=== PATIENT | female | born 1960 | race Hispanic/Latino ===

== ENCOUNTER → 2021-01-30 | Day surgery (SDC) | payer OTHER ==
[2021-01-26 11:40] LABS: BASOPHILS # (AUTO) 0.1 (0.0-0.1); BASOPHILS % 0.9 % (0.0-1.0); EOSINOPHILS # (AUTO) 0.1 (0.0-0.4); EOSINOPHILS % 1.9 % (0.0-6.0); HEMATOCRIT 42.2 % (34.2-44.1); HEMOGLOBIN 14.2 g/dL (12.0-16.0); LYMPHOCYTES # (AUTO) 2.7 (1.0-3.2); MEAN CORPUSCULAR HEMOGLOBIN 29.1 pg (28-32); MEAN CORPUSCULAR HGB CONC 33.6 g/dL (31-35); MEAN CORPUSCULAR VOLUME 86.5 fL (81-99); MONOCYTES # (AUTO) 0.4 (0.2-0.8); MONOCYTES % 6.5 % (4.4-11.3); NEUTROPHILS # (AUTO) 2.6 (2.1-6.9); NEUTROPHILS % 44.5 % (38.7-80.0); PLATELET COUNT 205 x10e3/uL (140-360); RED BLOOD COUNT 4.88 x10e6/uL (3.6-5.1)
[~2021-01-30] MED LIST: CRESTOR10 MG PO; ISOSORBIDE MONO20 MG PO; LIDOCAINE HCL 2% LOCAL INJ 5 ML SDV VIAL INJ ONE; METOPROLOL SUCC25 MG PO; MIDAZOLAM HCL 2 MG/2 ML VIAL ONE; OZEMPIC1 MG/0.75 SC; PLAVIX75 MG PO; PROPOFOL IV EMULSION 10 MG/ML 20 ML VIAL ONE; SYNJARDY 5-1,01 EACH PO; ZESTRIL10 MG PO
[2021-01-30 10:40] VITALS: BP 130/75
== END | disposition home or self-care (01) ==
LOC: OR 06:41
PROVIDERS: ATTEND Internal Medicine Gastroenterology
DX: Z12.11 Encounter for screening for malignant neoplasm of colon (principal); D12.2 Benign neoplasm of ascending colon; K64.8 Other hemorrhoids; G47.33 Obstructive sleep apnea (adult) (pediatric); E66.9 Obesity, unspecified; E11.9 Type 2 diabetes mellitus without complications; I25.10 Atherosclerotic heart disease of native coronary artery without angina pectoris; I10 Essential (primary) hypertension; E78.5 Hyperlipidemia, unspecified; H91.90 Unspecified hearing loss, unspecified ear; Z01.812 Encounter for preprocedural laboratory examination; Z20.822 Contact with and (suspected) exposure to COVID-19; Z79.02 Long term (current) use of antithrombotics/antiplatelets; Z95.5 Presence of coronary angioplasty implant and graft; Z95.1 Presence of aortocoronary bypass graft
CPT/HCPCS: 36415 ×2; 45385; 82948; 85025; J2001; J2250; J2704; U0002; 45378

== ENCOUNTER 2023-04-12 16:35 | Emergency (ER) | payer OTHER ==
[~2023-04-12] VITALS: Ht 154.9 cm; Wt 78.9 kg
[~2023-04-12 16:35] MED LIST changes: +CIPRO500 MG PO; +CLINDAMYCIN HC150 MG PO; +DOCUSATE SODIU100 MG PO; -LIDOCAINE HCL 2% LOCAL INJ 5 ML SDV VIAL INJ ONE; -MIDAZOLAM HCL 2 MG/2 ML VIAL ONE; -PROPOFOL IV EMULSION 10 MG/ML 20 ML VIAL ONE; +ULTRAM 50MG50 MG PO
[2023-04-12] MEDS ORDERED: ONDANSETRON HCL INJ 2MG/ML 2ML 2 MG/ML VIAL IV STA (18:12)
[2023-04-12] MEDS ORDERED: Morphine 4mg INJECTION 4 MG/ML INJ IV ONE (18:15)
[2023-04-12] MEDS ORDERED: SODIUM CHLORIDE 0.9% 1000ML 1,000 ML IV ONE (18:15)
[2023-04-12 18:23] LABS: BASOPHILS % 0.4 % (0.0-1.0); EOSINOPHILS # (AUTO) 0.1 (0.0-0.4); EOSINOPHILS % 0.9 % (0.0-6.0); HEMOGLOBIN 14.1 g/dL (12.0-16.0); LYMPHOCYTES # (AUTO) 2.7 (1.0-3.2); LYMPHOCYTES % 25.6 % (18.0-39.1); MEAN CORPUSCULAR HEMOGLOBIN 29.4 pg (28-32); MEAN CORPUSCULAR HGB CONC 34.4 g/dL (31-35); MEAN CORPUSCULAR VOLUME 85.4 fL (81-99); MONOCYTES # (AUTO) 0.6 (0.2-0.8); MONOCYTES % 5.7 % (4.4-11.3); NEUTROPHILS % 67.1 % (38.7-80.0); PLATELET COUNT 212 x10e3/uL (140-360); RED CELL DISTRIBUTION WIDTH 12.5 % (11.7-14.4)
[2023-04-12 18:36] LABS: ALBUMIN 3.9 g/dL (3.5-5.0); ALBUMIN/GLOBULIN RATIO 1.2 (0.8-2.0); ANION GAP 13.7 mmol/L (8-16); CALCIUM 9.2 mg/dL (8.4-10.2); CREATININE, SERUM 0.72 mg/dL (0.57-1.11); POTASSIUM 3.7 mmol/L (3.5-5.1)
[2023-04-12 18:47] LABS: CLARITY,URINE CLOUDY (CLEAR); COLOR,URINE YELLOW (YELLOW)
[2023-04-12 18:48] LABS: KETONES,URINE NEGATIVE (NEGATIVE); LEUKOCYTE ESTERASE ,URINE SMALL (NEGATIVE); NITRITE,URINE POSITIVE (NEGATIVE); PROTEIN,URINE DIPSTICK 1+ (NEGATIVE); URINE UROBILINOGEN 0.2 mg/dL (0.2 - 1)
[2023-04-12 18:51] LABS: BACTERIA,URINE MANY /HPF; EPITHELIAL CELLS,URINE RARE /LPF; WBC,URINE (MAN) >50 /HPF (0-5)
[2023-04-12] MEDS ORDERED: IOPAMIDOL 370 MG/ML 100 ML INFUS..BTL INJ ONE (19:06)
[2023-04-12] MEDS ORDERED: HYDRALAZINE HCL 20 MG/ML VIAL IV STA (19:51)
[2023-04-12] MEDS ORDERED: SODIUM CHLORIDE 0.9% 100 ML ONE (19:57)
[2023-04-12] MEDS ORDERED: CEFTRIAXONE 1 GM VIAL IV ONE (20:00)
[2023-04-12] MEDS ORDERED: KETOROLAC TROMETHAMINE 30 MG/ML VIAL IV STA (20:01)
[2023-04-12] MEDS ORDERED: CEPHALEXIN500 MG PO (23:01)
[2023-04-12 23:28] VITALS: O2SAT 98
== END 2023-04-12 23:45 | disposition home or self-care (01) ==
LOC: ER 16:49
DX: R10.31 Right lower quadrant pain (principal); N39.0 Urinary tract infection, site not specified; E11.65 Type 2 diabetes mellitus with hyperglycemia; I10 Essential (primary) hypertension; E78.5 Hyperlipidemia, unspecified; I25.10 Atherosclerotic heart disease of native coronary artery without angina pectoris; R94.31 Abnormal electrocardiogram [ECG] [EKG]; Z95.1 Presence of aortocoronary bypass graft
CPT/HCPCS: 36415; 74177; 80053; 81001; 83690; 85025; 87086; 87186; 93005; 99284; J0360; J0696; J1885; J2270; J2405; J7030; J7050; Q9967

== ENCOUNTER 2023-04-15 18:05 | Inpatient (IN) | payer OTHER ==
[~2023-04-15] VITALS: Ht 154.9 cm; Wt 81.2 kg
[~2023-04-15 18:05] MED LIST changes: +CEPHALEXIN500 MG PO
[2023-04-15] MEDS ORDERED: SODIUM CHLORIDE FLUSH 10 ML SYR INJ PRN (18:45)
[2023-04-15] MEDS ORDERED: DEXTROSE 50% SYRINGE 50 ML IV PRN (18:45)
[2023-04-15] MEDS ORDERED: ONDANSETRON HCL INJ 2MG/ML 2ML 2 MG/ML VIAL IV PRN (18:45)
[2023-04-15 18:56] LABS: BASOPHILS % 0.5 % (0.0-1.0); EOSINOPHILS # (AUTO) 0.2 (0.0-0.4); EOSINOPHILS % 3.3 % (0.0-6.0); HEMATOCRIT 42.5 % (34.2-44.1); HEMOGLOBIN 14.4 g/dL (12.0-16.0); LYMPHOCYTES # (AUTO) 2.6 (1.0-3.2); LYMPHOCYTES % 45.9 % (18.0-39.1); MEAN CORPUSCULAR HEMOGLOBIN 29.2 pg (28-32); MEAN CORPUSCULAR HGB CONC 33.9 g/dL (31-35); MEAN CORPUSCULAR VOLUME 86.2 fL (81-99); MONOCYTES # (AUTO) 0.4 (0.2-0.8); MONOCYTES % 6.3 % (4.4-11.3); NEUTROPHILS # (AUTO) 2.5 (2.1-6.9); NEUTROPHILS % 43.8 % (38.7-80.0); PLATELET COUNT 243 x10e3/uL (140-360); RED BLOOD COUNT 4.93 x10e6/uL (3.6-5.1); RED CELL DISTRIBUTION WIDTH 12.4 % (11.7-14.4)
[2023-04-15 19:16] LABS: ALBUMIN 3.9 g/dL (3.5-5.0); ALBUMIN/GLOBULIN RATIO 1.1 (0.8-2.0); ANION GAP 14.6 mmol/L (8-16); CALCIUM 10.2 mg/dL (8.4-10.2); CREATININE, SERUM 0.79 mg/dL (0.57-1.11); POTASSIUM 3.6 mmol/L (3.5-5.1)
[2023-04-15 19:46] LABS: CLARITY,URINE SL CLOUDY (CLEAR); COLOR,URINE YELLOW (YELLOW)
[2023-04-15 19:47] LABS: KETONES,URINE NEGATIVE (NEGATIVE); LEUKOCYTE ESTERASE ,URINE TRACE (NEGATIVE); NITRITE,URINE NEGATIVE (NEGATIVE); PROTEIN,URINE DIPSTICK 2+ (NEGATIVE); URINE UROBILINOGEN 0.2 mg/dL (0.2 - 1)
[2023-04-15 20:05] LABS: BACTERIA,URINE FEW /HPF; EPITHELIAL CELLS,URINE FEW /LPF; RENAL EPITHELIAL CELLS,URINE FEW
[2023-04-15 21:00] VITALS: BP 172/73; PULSE 79; RESP 20; TEMP 98.7; O2SAT 97
[2023-04-15 21:04] VITALS: BP 172/78; PULSE 79; RESP 20; TEMP 98.7; O2SAT 97
[2023-04-15] MEDS ORDERED: ATORVASTATIN CA40 MG PO (21:21)
[2023-04-15] MEDS ORDERED: METOPROLOL SUCC50 MG PO (21:21)
[2023-04-15] MEDS ORDERED: GABAPENTIN300 MG PO (21:21)
[2023-04-15] MEDS ORDERED: METFORMIN HCL500 M1 PO (21:21)
[2023-04-15] MEDS ORDERED: LISINOPRIL40 MG PO (21:21)
[2023-04-15] MEDS ORDERED: TRAMADOL HCL 50 MG TAB PO PRN (21:45)
[2023-04-15] MEDS ORDERED: CLONIDINE HCL 0.1 MG TAB PO PRN (21:45)
[2023-04-15] MEDS: ACETAMINOPHEN 325 MG TAB PO PRN (22:41)
[2023-04-15] MEDS: ATORVASTATIN 40 MG TAB PO SCH (22:42)
[2023-04-15] MEDS: INSULIN REGULAR, HUMAN 100 UNIT/1 ML SQ SCH (22:44)
[2023-04-16] VITALS (7 sets, daily range): BP systolic 137–163; BP diastolic 57–75; PULSE 58–76; RESP 18–20; TEMP 98.2–98.7; O2SAT 94–100
[2023-04-16 05:24] LABS: BASOPHILS % 0.7 % (0.0-1.0); EOSINOPHILS # (AUTO) 0.2 (0.0-0.4); EOSINOPHILS % 3.9 % (0.0-6.0); HEMATOCRIT 37.5 % (34.2-44.1); HEMOGLOBIN 12.5 g/dL (12.0-16.0); LYMPHOCYTES % 50.9 % (18.0-39.1); MEAN CORPUSCULAR HEMOGLOBIN 29.2 pg (28-32); MEAN CORPUSCULAR HGB CONC 33.3 g/dL (31-35); MEAN CORPUSCULAR VOLUME 87.6 fL (81-99); MONOCYTES # (AUTO) 0.5 (0.2-0.8); MONOCYTES % 7.6 % (4.4-11.3); NEUTROPHILS # (AUTO) 2.2 (2.1-6.9); NEUTROPHILS % 36.7 % (38.7-80.0); PLATELET COUNT 193 x10e3/uL (140-360); RED BLOOD COUNT 4.28 x10e6/uL (3.6-5.1); RED CELL DISTRIBUTION WIDTH 12.3 % (11.7-14.4)
[2023-04-16 05:46] LABS: ALBUMIN 3.2 g/dL (3.5-5.0); ALBUMIN/GLOBULIN RATIO 1.1 (0.8-2.0); ANION GAP 11.7 mmol/L (8-16); CALCIUM 8.9 mg/dL (8.4-10.2); CREATININE, SERUM 0.71 mg/dL (0.57-1.11); POTASSIUM 3.7 mmol/L (3.5-5.1)
[2023-04-16] MEDS: ISOSORBIDE MONONITRATE 20 MG TAB PO SCH ×3 (09:00→10:07)
[2023-04-16] MEDS: CLOPIDOGREL BISULFATE 75 MG TAB PO SCH (10:03)
[2023-04-16] MEDS: LISINOPRIL 10 MG TAB PO SCH (10:03)
[2023-04-16] MEDS: DOCUSATE SODIUM 100 MG CAP PO SCH ×2 (10:03→17:16)
[2023-04-16] MEDS: METFORMIN HCL 500 MG TAB CR PO SCH ×2 (10:04→17:16)
[2023-04-16] MEDS: METOPROLOL SUCCINATE 25 MG TAB XL PO SCH (10:05)
[2023-04-16] MEDS: INSULIN REGULAR, HUMAN 100 UNIT/1 ML SQ SCH ×4 (10:06→21:46)
[2023-04-16] MEDS: ENOXAPARIN SOD INJ 40 MG/0.4 ML SYR SC SCH (17:17)
[2023-04-16] MEDS ORDERED: ATORVASTATIN 40 MG TAB PO SCH (21:00)
[2023-04-16] MEDS: GABAPENTIN 300 MG CAP PO SCH (21:39)
[2023-04-16] MEDS: ATORVASTATIN 40 MG TAB PO SCH (21:41)
[2023-04-17] VITALS: BP 161/65; PULSE 65; RESP 20; TEMP 98.7
[2023-04-17] MEDS: INSULIN REGULAR, HUMAN 100 UNIT/1 ML SQ SCH ×4 (07:30→21:46)
[2023-04-17 08:00] VITALS: BP 161/65; PULSE 65; RESP 20; TEMP 98.7; O2SAT 98
[2023-04-17 08:43] VITALS: BP 142/69; PULSE 63; RESP 18; TEMP 98.4; O2SAT 97
[2023-04-17] MEDS ORDERED: ONDANSETRON HCL 4 MG ORAL DISINTEGRATING TAB PO PRN (09:00)
[2023-04-17] MEDS: CLOPIDOGREL BISULFATE 75 MG TAB PO SCH (09:55)
[2023-04-17] MEDS: DOCUSATE SODIUM 100 MG CAP PO SCH ×2 (09:55→17:46)
[2023-04-17] MEDS: LISINOPRIL 10 MG TAB PO SCH (09:56)
[2023-04-17] MEDS: METFORMIN HCL 500 MG TAB CR PO SCH ×2 (09:56→17:46)
[2023-04-17] MEDS: METOPROLOL SUCCINATE 25 MG TAB XL PO SCH (09:57)
[2023-04-17] MEDS: ISOSORBIDE MONONITRATE 20 MG TAB PO SCH (09:57)
[2023-04-17 12:19] VITALS: BP 141/63; PULSE 66; RESP 16; TEMP 98.1; O2SAT 97
[2023-04-17 16:04] VITALS: BP 130/52; PULSE 63; RESP 18; TEMP 98.4; O2SAT 99
[2023-04-17] MEDS: ENOXAPARIN SOD INJ 40 MG/0.4 ML SYR SC SCH (17:46)
[2023-04-17 20:00] VITALS: BP 130/52; PULSE 63; RESP 18; TEMP 98.4; O2SAT 99
[2023-04-17] MEDS: GABAPENTIN 300 MG CAP PO SCH (20:37)
[2023-04-17] MEDS: ATORVASTATIN 40 MG TAB PO SCH (20:37)
[2023-04-17] MEDS: ACETAMINOPHEN 325 MG TAB PO PRN (20:43)
[2023-04-18 04:00] VITALS: BP 163/69; PULSE 54; RESP 17; TEMP 98.2; O2SAT 100
[2023-04-18 06:30] LABS: BASOPHILS % 0.5 % (0.0-1.0); EOSINOPHILS # (AUTO) 0.2 (0.0-0.4); EOSINOPHILS % 3.7 % (0.0-6.0); HEMATOCRIT 39.7 % (34.2-44.1); HEMOGLOBIN 13.1 g/dL (12.0-16.0); LYMPHOCYTES # (AUTO) 3.6 (1.0-3.2); LYMPHOCYTES % 60.2 % (18.0-39.1); MONOCYTES # (AUTO) 0.4 (0.2-0.8); MONOCYTES % 7.2 % (4.4-11.3); NEUTROPHILS # (AUTO) 1.7 (2.1-6.9); NEUTROPHILS % 28.2 % (38.7-80.0); PLATELET COUNT 209 x10e3/uL (140-360); RED BLOOD COUNT 4.51 x10e6/uL (3.6-5.1); RED CELL DISTRIBUTION WIDTH 12.4 % (11.7-14.4)
[2023-04-18 06:53] LABS: ANION GAP 10.7 mmol/L (8-16); CREATININE, SERUM 0.62 mg/dL (0.57-1.11); POTASSIUM 3.7 mmol/L (3.5-5.1)
[2023-04-18] MEDS: INSULIN REGULAR, HUMAN 100 UNIT/1 ML SQ SCH ×2 (07:30→12:13)
[2023-04-18 08:02] VITALS: BP 169/69; PULSE 63; RESP 18; TEMP 97.7; O2SAT 98
[2023-04-18 09:00] VITALS: BP 169/69; PULSE 63; RESP 18; TEMP 97.7; O2SAT 98
[2023-04-18] MEDS: ISOSORBIDE MONONITRATE 20 MG TAB PO SCH (09:32)
[2023-04-18] MEDS: CLOPIDOGREL BISULFATE 75 MG TAB PO SCH (09:32)
[2023-04-18] MEDS: LISINOPRIL 10 MG TAB PO SCH (09:33)
[2023-04-18] MEDS: METFORMIN HCL 500 MG TAB CR PO SCH (09:40)
[2023-04-18] MEDS: DOCUSATE SODIUM 100 MG CAP PO SCH (09:40)
[2023-04-18] MEDS: METOPROLOL SUCCINATE 25 MG TAB XL PO SCH (09:40)
[2023-04-18] MEDS ORDERED: MACROBID 100 M100 MG PO ×2 (11:01→11:18)
[2023-04-18 11:38] VITALS: BP 152/61; PULSE 63; RESP 19; TEMP 98.7; O2SAT 92
== END 2023-04-18 13:48 | disposition home or self-care (01) | DRG 690 ==
LOC: ER 18:11 → ERHOLD 18:39 → MED/SURG2 20:12
PROVIDERS: ADMIT Internal Medicine; ATTEND Internal Medicine
DX: N39.0 Urinary tract infection, site not specified (principal); Z16.24 Resistance to multiple antibiotics; B96.89 Other specified bacterial agents as the cause of diseases classified elsewhere; E78.00 Pure hypercholesterolemia, unspecified; I25.10 Atherosclerotic heart disease of native coronary artery without angina pectoris; I10 Essential (primary) hypertension; E11.40 Type 2 diabetes mellitus with diabetic neuropathy, unspecified; Z95.1 Presence of aortocoronary bypass graft; Z79.02 Long term (current) use of antithrombotics/antiplatelets; Z79.85 Long-term (current) use of injectable non-insulin antidiabetic drugs; Z20.822 Contact with and (suspected) exposure to COVID-19
CPT/HCPCS: 0223U; 36415; 80048; 80053; 81001; 82948; 85025; 87040; 87086; 99283; J1650; J2543